=== PATIENT | male | born 1970 | race Caucasian/White ===

== ENCOUNTER 2019-10-04 14:27 | Emergency (ER) | payer SELFPAY ==
[~2019-10-04] VITALS: Ht 172.7 cm; Wt 90.9 kg
[2019-10-04 14:30] VITALS: BP 153/82
== END 2019-10-04 15:04 | disposition left against medical advice (07) ==
LOC: EMS 14:28
DX: M79.646 Pain in unspecified finger(s) (principal); Z53.21 Procedure and treatment not carried out due to patient leaving prior to being seen by health care provider